=== PATIENT | male | born 1980 | race African-American/Black ===

== ENCOUNTER 2016-12-14 08:58 | Emergency (ER) | payer MEDICARE, MEDICAID ==
[~2016-12-14] VITALS: Ht 170.2 cm; Wt 81.5 kg
[~2016-12-14 08:58] MED LIST: AMOX1TAB15 PO; DIVA500T52 PO
[2016-12-14] MEDS ORDERED: RISP1 PO (09:05)
[2016-12-14] MEDS ORDERED: LISI-662 PO (09:05)
[2016-12-14] MEDS ORDERED: BUSP10TA23 PO (09:05)
[2016-12-14] MEDS ORDERED: IBUPROFEN 600 MG TABLET PO ONE (09:45)
[2016-12-14 09:55] LABS: BASOPHILS % (AUTO) 0.3 % (0.0-2.0); EOSINOPHILS % (AUTO) 2.3 % (1.0-6.0); HEMOGLOBIN 12.6 g/dL (13.5-17.5); LYMPHOCYTES # (AUTO) 1.4 K/uL (1.0-4.8); LYMPHOCYTES % (AUTO) 21.7 % (22.0-44.0); MEAN CORPUSCULAR HGB CONC 34.1 G/dL (31.0-37.0); MEAN CORPUSCULAR VOLUME 97 fL (80-100); MONOCYTES # (AUTO) 0.6 K/uL (0.1-1.0); MONOCYTES % (AUTO) 9.1 % (2.0-9.0); NEUTROPHILS # (AUTO) 4.4 K/uL (1.8-7.7); NEUTROPHILS % (AUTO) 66.6 % (40.0-70.0); PLATELET COUNT (AUTO) 209 K/uL (150-450); RED BLOOD CELL COUNT(AUTO) 3.82 MIL/uL (4.50-5.90); RED CELL DISTRIBUTION WIDTH 15.9 % (11.5-14.5); WHITE BLOOD COUNT (AUTO) 6.6 K/uL (4.5-11.0)
[2016-12-14 10:06] LABS: ANION GAP 8 mmol/L (8-16); CALCIUM, TOTAL 8.5 mg/dL (8.8-10.5); CARBON DIOXIDE 25 mmol/L (22-29); CHLORIDE 109 mmol/L (98-107); CREATININE 0.83 mg/dL (0.60-1.30); GLOMERULAR FILTR. RATE CALC > 60 mL/min (>60); POTASSIUM 4.2 mmol/L (3.5-5.1); SODIUM SERUM 142 mmol/L (136-145); UREA NITROGEN, BLOOD 17 mg/dL (7-18)
[2016-12-14 10:12] LABS: ALANINE AMINOTRANSFERASE 377 U/L (12-78); ALBUMIN 2.9 g/dL (3.4-5.0); ASPARTATE AMINOTRANSFERASE 129 U/L (15-37); BILIRUBIN,TOTAL 0.4 mg/dL (0.1-1.0)
[2016-12-14 10:39] VITALS: BP 138/71
== END 2016-12-14 10:41 | disposition home or self-care (01) ==
LOC: EMS 09:07
DX: M25.542 Pain in joints of left hand (principal); M25.541 Pain in joints of right hand; B19.20 Unspecified viral hepatitis C without hepatic coma; R19.7 Diarrhea, unspecified; M79.89 Other specified soft tissue disorders
CPT/HCPCS: 99284